=== PATIENT | male | born 1990 | race Caucasian/White ===

== ENCOUNTER 2017-07-12 14:13 | Emergency (ER) | payer OTHER ==
[~2017-07-12] VITALS: Ht 180.3 cm; Wt 67.3 kg
[~2017-07-12 14:13] MED LIST: ADDERALL XR 1515 MG PO; ATARAX,VISTARIL25 MG PO; ATIVAN1 MG PO; FANAPT8 MG PO; INVEGA SUS234 MG/1.5 IM
[2017-07-12 14:30] VITALS: BP 144/96
== END 2017-07-12 16:06 | disposition home or self-care (01) ==
LOC: EME 14:13
PROC: 0HQ4XZZ Repair Neck Skin, External Approach (ICD-10-PCS; principal; 2017-07-12)
DX: S11.81XA Laceration without foreign body of other specified part of neck, initial encounter (principal); W26.0XXA Contact with knife, initial encounter; Y93.75 Activity, martial arts; Y92.009 Unspecified place in unspecified non-institutional (private) residence as the place of occurrence of the external cause
CPT/HCPCS: 99281; 99283